=== PATIENT | male | born 1995 | race Caucasian/White ===

== ENCOUNTER 2023-08-08 16:09 | Outpatient (CLI) | payer OTHER, SELFPAY | END 2023-08-08 16:10 | disposition home or self-care (01) | PROVIDERS: Visit Provider Internal Medicine | DX: M79.643 Pain in unspecified hand (principal) | CPT/HCPCS: 86039; 86200; 86431 ==

== ENCOUNTER 2023-08-08 16:29 | Outpatient (CLI) | payer OTHER, SELFPAY ==
--- NOTE | 2023-08-08 16:30 | XR_ITS ---
Patient: ELIAZAR JUSTICE Facility:?[facility] Patient ID:?[id number] Site Patient ID:?[id number]. Site :?1995 Study:?XRay-Extremity Left HAND 3V-08/08/2023 5:20:27 PM Ordering Physician:?MARCOSITER Final Report: INDICATION: Pain. TECHNIQUE: Three views of the left hand. FINDINGS: No bone, joint, or soft tissue abnormality in the left hand. Normal exam. Dictated by Lasha Murrieta MD @ 08/09/2023 12:47:50 PM Signed by:?Lasha Murrieta MD @08/09/2023 12:47:50 PM (Electronic Signature)
--- NOTE | 2023-08-08 16:45 | XR_ITS ---
Patient: ELIAZAR JUSTICE Facility:?[facility] Patient ID:?[id number] Site Patient ID:?[id number]. Site :?1995 Study:?XRay-Extremity Right HAND 3V-08/08/2023 5:20:51 PM Ordering Physician:?MARCOSITER Final Report: INDICATION: Pain. TECHNIQUE: Three views of the right hand. FINDINGS: No bone, joint, or soft tissue abnormality in the right hand. Normal exam. Dictated by Lasha Murrieta MD @ 08/09/2023 12:49:08 PM Signed by:?Lasha Murrieta MD @08/09/2023 12:49:08 PM (Electronic Signature)
== END 2023-08-08 16:30 | disposition home or self-care (01) ==
LOC: RAD 16:29
PROVIDERS: Visit Provider Internal Medicine
DX: M79.641 Pain in right hand (principal); M79.642 Pain in left hand
CPT/HCPCS: 73130; 86039; 86200; 86431

== ENCOUNTER 2023-12-08 15:47 | Outpatient (CLI) | payer OTHER, SELFPAY | END 2023-12-08 15:48 | disposition home or self-care (01) | PROVIDERS: PCP Internal Medicine; Visit Provider Registered Nurse | DX: R30.0 Dysuria (principal); R21 Rash and other nonspecific skin eruption; Z11.3 Encounter for screening for infections with a predominantly sexual mode of transmission | CPT/HCPCS: 86592; 86694; 86695; 86696; 87491; 87591 ==

== ENCOUNTER 2023-12-29 15:23 | Outpatient (CLI) | payer OTHER, SELFPAY ==
--- OUTSIDE RECORDS SUMMARY | 2023-12-30 10:28 | XMS_ITS | Continuity of Care Document ---
Author Name [facility] Organization [facility] Care Team Providers Care Eyeglass Inspector Name Role Phone [facility] Unavailable Unavailable Problems Combined list of problems [...] Site Reaction Lot Number CVX Code Drug Electrifier Operator Status Comments Source COVID Vaccine Pfizer 2021 SADAPKIRUI Left [place] id [id number] PFIZER complet ed COVID Vaccine Pfizer 09/30/21 Given 0075C-G eneral [facility] COVID Vaccine Pfizer 2021 SHARONKSPANGL ER Right [place] id [id number] PFIZER complet ed COVID Vaccine Pfizer 08/28/21 Given 0075A-G eneral [facility] meningococcal conjugate vaccine 2021 SUSANTHOLLAND Right [place] id [id number] sanofi pasteur complet ed meningoco ccal conjugate vaccine 08/28/21 Given 0075A-G eneral [facility] poliovirus vaccine, inactivated 2021 ASHLEYRPALMER Left [place] id [id number] sanofi pasteur complet ed polioviru s vaccine, inactivat ed 08/28/21 Given 0075A-G eneral [facility] influenza virus vaccine, inactivated 2021 ASHLEYRPALMER Left [place] id [id number] Seqirus, [employer] complet ed influenza virus vaccine, inactivat ed 08/28/21 Given 0075A-G eneral [facility] hepatitis A-hepatitis B vaccine 2021 ASHLEYRPALMER Right [place] id [id number] GlaxoSmithKli ne complet ed hepatitis A-hepatit is B vaccine 08/28/21 Given 0075A-G eneral [facility] tetanus, diphtheria, acellular pertu is 2021 DANIEL Steele Left [place] id [id number] [employer] complet ed tetanus, diphtheri a, acellular pertussis 08/28/21 Given 0075A-G eneral [facility] adenovirus vaccine, live 2021 TIMOTHYJWEIGM AN [id number] [employer] [facility] complet ed adenoviru s vaccine, live 08/28/21 Given 0075A-G eneral Toño [facility] Results Combined list of recent chemistry, hematology [...] For example, cartridge failed integrity test, the thermoforming operator stopped a test that was in progress, or a power failure occurred. Currently the FluVID order may only be used to test SARS-CoV-2 at [facility] Chemistry G6PD 14.3 [...] and its performance characteris tics evaluated by [facility] Reference Chemistry Laboratory. It has not been [...] and its performance characteris tics evaluated by [facility] Reference [facility]. ? It has not [...] Performed At: 1 [facility] [address] [place] [address] [address] [place] [address] WAYNE GORDON PHD Ph:[phone] [facility] Infectiou s Disease [...] For example, cartridge failed integrity test, the thermoforming operator stopped a test that was in progress, or a power failure occurred. Currently the FluVID order may only be used to test SARS-CoV-2 at [facility] Urinalysi s UA [...] of Defense and Veterans Affairs (VA).VA Functional [place] Measurement (FIM) Scale: 1 = Total Assistance (Subject = 0% +), 2 = Maximal Assistance (Subject = 25% +), 3 = Moderate Assistance (Subject = 50% +), 4 = Minimal Assistance (Subject = 75% +), 5 = Supervision, 6 = Modified [place] (Device), 7 = Complete [place] (Timely, Safely). Assessment Date/Time Source Assessment Type Assessment Skill Assessment Score Assessment Details No data available for this section
== END 2023-12-29 15:24 | disposition home or self-care (01) ==
LOC: NFLDREF 12-30 10:25
PROVIDERS: PCP Internal Medicine; Referring Provider Internal Medicine; Visit Provider Registered Nurse
DX: R35.0 Frequency of micturition (principal); Z11.3 Encounter for screening for infections with a predominantly sexual mode of transmission
CPT/HCPCS: 87086; 87491; 87591

== ENCOUNTER 2023-12-30 08:29 | Outpatient (CLI) | payer OTHER, SELFPAY ==
--- OUTSIDE RECORDS SUMMARY | 2023-12-30 08:32 | XMS_ITS | Continuity of Care Document ---
Author Name [facility] Organization [facility] Care Team Providers Care Fryer Operator Name Role Phone [facility] Unavailable Unavailable Problems Combined list of problems from Department of Defense and Veterans Affairs facilities. It does not include entries that were removed or entered in error. Problem Status Onset Date Problem Type Date of Resolution Comments Source Counseled by nurse Active Condition Ambulatory Pharmacy Patient examined Active Condition Ambulatory Pharmacy Immunizations Combined list of available immunizations from the Department of Defense and Veterans Affairs facilities. Immunization Series Date Given Administered By Site Reaction Lot Number CVX Code Drug Software Support Technician Status Comments Source COVID Vaccine Pfizer 2021 SADAPKIRUI Left [place] id [id number] PFIZER complet ed COVID Vaccine Pfizer 09/30/21 Given 0075C-G [facility]eral [facility] COVID Vaccine Pfizer 2021 SHARONKSPANGL ER Right [place] id [id number] PFIZER complet ed COVID Vaccine Pfizer 08/28/21 Given 0075A-G eneral [facility] meningococcal conjugate vaccine 2021 SUSANTHOLLAND Right [place] id [id number] sanofi pasteur complet ed meningoco ccal conjugate vaccine 08/28/21 Given 0075A-G eneral [facility] poliovirus vaccine, inactivated 2021 ASHLEYRPALMER Left [place] id [id number] sanofi pasteur complet ed polioviru s vaccine, inactivat ed 08/28/21 Given 0075A-G eneral [facility] influenza virus vaccine, inactivated 2021 ASHLEYRPALMER Left [place] id [id number] Seqirus, [employer] complet ed influenza virus vaccine, inactivat ed 08/28/21 Given 0075A-G eneral [facility] hepatitis A-hepatitis B vaccine 2021 ASHLEYRPALMER Right [place] id [id number] GlaxoSmithKli ne complet ed hepatitis A-hepatit is B vaccine 08/28/21 Given 0075A-G eneral [facility] tetanus, diphtheria, acellular pertu is 2021 DANIEL Steele Left [place] id [id number] [employer] [address] complet ed tetanus, diphtheri a, acellular pertussis 08/28/21 Given 0075A-G eneral [facility] adenovirus vaccine, live 2021 TIMOTHYJWEIGM AN [id number] [employer] [facility] complet ed adenoviru s vaccine, live 08/28/21 Given 0075A-G eneral Toño [facility] Results Combined list of recent chemistry, hematology and other laboratory results from Department of Defense and Veterans Affairs, ranging from 15 months to all on record, depending upon the facility. Order Name Results Value Reference Range Date Interpretation Specimen Comments Source Infectiou s Disease Reason for Test? Screenin g (09/02/21 11:30 AM) 09/02 N [facility] Infectiou s Disease SARS-CoV- 2 PCR Negative 8 (09/02/21 11:30 AM) 09/02 N Interpretiv e Data: POSITIVE-Th e 2019 novel Coronavirus (SARS-COV-2 ) target nucleic acids are detected. PRESUMTIVE POSITIVE-Th e 2019 novel Coronavirus (SARS-COV-2 ) target nucleic acids MAY be present. Sample should be retested. For samples with a repeated PRESUMTIVE POSITIVE result, additional confirmator y testing may be conducted, if it is necessary to differentia te between SARS-COV-2 and SARS-COV-1 or other Sarbecoviru s currently unknown to infect humans, for epidemiolog ical purposes or clinical management. NEGATIVE- The 2019 novel Coronavirus (SARS-COV-2 ) target nucleic acids are not detected. INVALID- Result indicates that the control SPC failed. The Sample was not properly processed, PCR is inhibited, or the sample was not properly collected. ERROR- Result could be due to, but not limited to, Probe Check Control failure, system component failure, or the maximun pressure limits were exceeded. NO RESULT- Indicates that insufficien t data were collected. For example, cartridge failed integrity test, the chip machine operator stopped a test that was in progress, or a power failure occurred. Currently the FluVID order may only be used to test SARS-CoV-2 at [facility] Chemistry G6PD 14.3 unit/gHb 08/26 N Interpretiv e Data: All persons below our lower limit of 7 are considered Deficient .G6PD reported value is a calculation based on G6PD and hemoglobin values. Values greater than the upper limit of our reference range are considered Normal in accordance with guidance from the [place] Textbook on Clinical Chemistry, which states that values greater than the upper limit of the reference range are encountered in any condition associated with younger than normal RBC's (as in hemolytic anemias not due to G6PD deficiency) , but are of no clinical significanc e. Certain drugs and other substances are known to influence circulating levels of G6PD. Reticulocyt es havehigher G6PD levels than mature erythrocyte s, so samples should not be collected after a severe hemolytic crisis. Copper completely inhibits G6PD at a concentrati on of 100 umol/L, and sulfate ions (0.005 mol/L) decrease observed levels of G6PD activity. This test was developed and its performance characteris tics evaluated by [facility] Reference Chemistry Laboratory. It has not been cleared or approved by the U.S. Food Drug Administrat ion (FDA). FDA does not require this test to go through premarket FDA review.The test isused for clinical purposes and should not be regarded as investigati onal or for research. This laboratory is certified under the Clinical Laboratory Improvement Amendments of 1988 (CLIA) as qualified to perform high complexity clinical laboratory testing. [facility] Chemistry Sickle Cell Screen Negative 4 (08/26/21 8:51 AM) 08/26 N Interpretiv e Data: Expected Normal Range is Negative. This test was developed and its performance characteris tics evaluated by [facility] Reference Chemistry Laboratory. ? It has not been cleared or approved by the U.S. Food Drug Administrat ion (FDA).&#160 ; FDA does not require this test to go through premarket FDA review.? The test is used for clinical purposes and should not be regarded as investigati onal or for research. This laboratory is certified under the Clinical Laboratory Improvement Amendments of 1988 (CLIA) as qualified to perform high complexity clinical laboratory testing. [facility] Miscellan eous Sendouts DNA Sample Collected ? Y 08/26 [facility] Immunolog y/Serolog y VZV IgG Scrn Positive 1 *ABN* (08/26/21 8:51 AM) 08/26 A Interpretiv e Data: POSITIVE (REACTIVE) for anti-Varice lla IgG; presumed immune NEGATIVE (NON REACTIVE) for anti-Varice lla IgG; presumed non-immune [facility] Immunolog y/Serolog y Rubeola IgG Antibody Positive *ABN* (08/26/21 8:51 AM) 08/26 A [facility] Immunolog y/Serolog y Rubella IgG Antibody Positive 7 *ABN* (08/26/21 8:51 AM) 08/26 A Interpretiv e Data: POSITIVE (REACTIVE) for anti-Rubell a IgG; presumed immune NEGATIVE (NON REACTIVE) for anti- Rubella IgG; presumed non-immune [facility] Blood Bank ABO/Rh Type AB NEG 08/26 [facility] Immunolog y/Serolog y Hep A Ab Non-Reac tive 3 (08/26/21 8:51 AM) 08/26 N Interpretiv e Data: NONREACTIVE - Indicates a sample nonreactive for Anti-HAV antibodies. The result does not exclude the possibility of infection with hepatitis A virus. Levels of Anti-HAV antibodies may be below the Cutoff in early infection. REACTIVE- Indicates the presence of anti-HAV antibodies. A reactive result does not rule out other hepatitis infections. [facility] Immunolog y/Serolog y Hep B Surface Ab Non-Reac tive 2 (08/26/21 8:51 AM) 08/26 N Interpretiv e Data: Nonreactive : Patient is considered to be not immune to infection with HBV. Reactive: Patient is considered reactive, and the patient is considered to be immune to infection with HBV. [facility] Infectiou s Disease Source of Test.LC Gen Force Test (08/26/21 8:51 AM) 08/26 N [facility] Infectiou s Disease HIV-1/2 AG/AB 4G CDD LC NEGATIVE 08/26 Result Comment: Performed At: 1 [facility] [address] [place] [address] [address] [place] [address] WAYNE GORDON PHD Ph:[phone] [facility] Infectiou s Disease Reason for Test? Screenin g (08/26/21 1:20 AM) 08/26 N [facility] Infectiou s Disease SARS-CoV- 2 PCR Negative 9 (08/26/21 1:20 AM) 08/26 N Interpretiv e Data: POSITIVE-Th e 2019 novel Coronavirus (SARS-COV-2 ) target nucleic acids are detected. PRESUMTIVE POSITIVE-Th e 2019 novel Coronavirus (SARS-COV-2 ) target nucleic acids MAY be present. Sample should be retested. For samples with a repeated PRESUMTIVE POSITIVE result, additional confirmator y testing may be conducted, if it is necessary to differentia te between SARS-COV-2 and SARS-COV-1 or other Sarbecoviru s currently unknown to infect humans, for epidemiolog ical purposes or clinical management. NEGATIVE- The 2019 novel Coronavirus (SARS-COV-2 ) target nucleic acids are not detected. INVALID- Result indicates that the control SPC failed. The Sample was not properly processed, PCR is inhibited, or the sample was not properly collected. ERROR- Result could be due to, but not limited to, Probe Check Control failure, system component failure, or the maximun pressure limits were exceeded. NO RESULT- Indicates that insufficien t data were collected. For example, cartridge failed integrity test, the chip machine operator stopped a test that was in progress, or a power failure occurred. Currently the FluVID order may only be used to test SARS-CoV-2 at [facility] Pharmacy Urinalysi s UA Glucose Negative (07/14/21 10:50 AM) 07/14 N [facility] Urinalysi s UA Protein Negative (07/14/21 10:50 AM) 07/14 N [facility] Vital Signs Combined list of inpatient and outpatient Vital Signs from Department of Defense and Veterans Affairs, ranging from 12 months to all on record, depending upon the facility. Vital Sign Value Date Comments Source Procedures Combined list of: 1) Procedures from Department of Veterans Affairs facilities going back up to thelast 18 months, not all VA non-surgical procedures are included; 2) All procedures from the Department of Defense facilities. Procedure Procedure Type Code Date Perfomer Comments Sourc e No data available for this section Ambulatory P harmacy Assessment and Plan Combined list of future care activities from Department of Defense and Veterans Affairs facilities (e.g., assessment and plan notes, appointments, orders, and referrals). Additional future care activities may be listed in the Plan of Care section. Result Assessment and Plan Date Source Assessment and Plan Extracted from:Title : Education Note Author: TASHA MONTES DE OCA JR Date: 07/14/21 Patient Education Materials Follows: 12/30/2023 Ambulatory Pharmacy Functional Status Combined list of recent functional and cognitive assessments recorded at Department of Defense and Veterans Affairs (VA).VA Functional [place] Measurement (FIM) Scale: 1 = Total Assistance (Subject = 0% +), 2 = Maximal Assistance (Subject = 25% +), 3 = Moderate Assistance (Subject = 50% +), 4 = Minimal Assistance (Subject = 75% +), 5 = Supervision, 6 = Modified [place] (Device), 7 = Complete [place] (Timely, Safely). Assessment Date/Time Source Assessment Type Assessment Skill Assessment Score Assessment Details No data available for this section
--- NOTE | 2023-12-30 09:15 | CRLHL7_ITS ---
For Patients: As a result of the Century Cures Act, medical imaging exams and procedure reports are released immediately into your electronic medical record. You may view this report before your referring provider. If you have questions, please contact your health care provider. Indication: Right hip pain. Procedure : Informed consent was obtained. The site was marked. Time-out was performed. The skin of the right hip was cleansed with ChloraPrep. A sterile drape was placed. 8 cc of 1 percent lidocaine was administered for superficial anesthesia. Subsequently a 22 gauge spinal needle was introduced into the right hip joint under intermittent fluoroscopic guidance. Injection of 2 cc nonionic Omnipaque 240 contrast confirmed intra-articular location. Subsequently 11 cc of dilute gadolinium were injected. The needle was removed and hemostasis achieved with direct pressure. A dressing was placed. The patient tolerated the procedure well without immediate complication and was immediately sent to MRI for imaging. Total fluoroscopy time 39 seconds. Impression: Successful fluoroscopically guided right hip arthrogram for MRI. Dictated by Bruce Figueredo MD @ 12/30/2023 11:49:24 AM (Electronically Signed)
--- NOTE | 2023-12-30 10:15 | MR_ITS ---
[address] [address] Phone:?[phone] Fax:?[phone] Referring Physician Information: Connie Navarro [address] [facility] [address] Phone:?[phone] Fax:?[phone] Patient:Gabbie Lopez D.O.B:?1995 Sex:?Male Phone:?[phone] [facility] MRN:?[id number] Exam Date:?12/30/2023 EXAM: MR ARTHROGRAM EXAMINATION OF THE RIGHT HIP CLINICAL INFORMATION: Right hip pain. No specific injury. No history of surgery to this area. Evaluate labral tear. TECHNICAL INFORMATION: The study was performed following the intraarticular injection of a dilute gadolinium solution. Axial, coronal and sagittal dual-echo imaging of the hip was performed in addition to coronal STIR and coronal T1-weighted images of both hips and the pelvis. T1 sagittal and coronal fat sat were also performed. There are no prior studies available for comparison. INTERPRETATION: Hip joint: The hip joint is distended with contrast material status post arthrogram injection. No discrete loose body is seen. No subchondral edema signal or cystic change. No discrete lesion identified to indicate AVN. No evidence of marrow edema pattern to indicate fracture or stress reaction of the femoral neck. There is no evidence for a right hip joint chondral defect. No other appreciable changes of hip joint chondromalacia identified. There is no evidence for a tear involving the superior aspect of the labrum. Series 8 images 13 through 16 of a straight a 1.2 cm segment of linear tear which involves the anterosuperior aspect of the labrum. No evidence for a paralabral cyst. There is no appreciable decreased offset involving the femoral head/neck junction. No evidence for acetabular retroversion. The gluteus tendon insertions onto the greater trochanter are intact without tear or significant tendinopathy. No evidence of fluid signal abnormality to indicate trochanteric bursitis. Intact appearance of the iliopsoas muscle and tendon insertions. Abnormal fluid and edema signal in keeping with a moderate appearance of iliopsoas bursitis. Bones and joints: No evidence for an occult fracture/stress reaction involving the sacrum. There are no appreciable changes of SI joint arthrosis. No evidence for a fracture. No abnormal marrow edema pattern to indicate occult stress reaction or stress fracture. Musculotendinous structures: No evidence of acute musculotendinous injury. Specifically, no evidence of acute muscle tear, hematoma or other edema pattern. Intrapelvic contents: No free fluid seen within the pelvis. No discrete intrapelvic mass is identified. Neurovascular structures: No discrete cyst, mass or other compression upon the portions visualized of sciatic or femoral nerves. CONCLUSION: 1. Approximate 1.2 cm segment of linear tear involving the anterosuperior aspect of the labrum, without evidence for a paralabral cyst. 2. The articular cartilage of the hip joint is preserved. 3. No convincing MRI evidence for morphologic predisposition to femoroacetabular impingement. 4. There is a moderate appearance of iliopsoas bursitis. 5. No evidence for an occult fracture/stress reaction. No evidence for AVN. KES Electronically signed on 12/30/2023 2:35:00 PM by Johnathan Jacobs M.D.
== END 2023-12-30 08:30 | disposition home or self-care (01) ==
LOC: RAD 08:30
PROVIDERS: PCP Internal Medicine; Visit Provider Physician Assistant Surgical
DX: M25.551 Pain in right hip (principal); S73.192A Other sprain of left hip, initial encounter; M70.72 Other bursitis of hip, left hip; S79.919A Unspecified injury of unspecified hip, initial encounter; S76.211A Strain of adductor muscle, fascia and tendon of right thigh, initial encounter
CPT/HCPCS: 27093; 73525; 73722; 77002; A9575; Q9966

== ENCOUNTER 2024-01-11 18:24 | Outpatient (REF) | payer OTHER, SELFPAY ==
--- OUTSIDE RECORDS SUMMARY | 2024-01-11 18:28 | XMS_ITS | Continuity of Care Document ---
Author Name [facility] Organization [facility] Care Team Providers Care Abrasive Coating Machine Operator Name Role Phone [facility] Unavailable Unavailable Problems Combined list of problems [...] Site Reaction Lot Number CVX Code Drug Mobile Designer Status Comments Source COVID Vaccine Pfizer 2021 SADAPKIRUI Left [place] id [id number] PFIZER complet ed COVID Vaccine Pfizer 09/30/21 Given [facility] COVID Vaccine Pfizer 2021 SHARONKSPANGL ER Right [place] id [id number] PFIZER complet ed COVID Vaccine Pfizer 08/28/21 Given 0075A[facility] meningococcal conjugate vaccine 2021 SUSANTHOLLAND Right [place] id [id number] sanofi pasteur complet ed meningoco ccal conjugate vaccine 08/28/21 Given 0075A[facility] poliovirus vaccine, inactivated 2021 ASHLEYRPALMER Left [place] id [id number] sanofi pasteur complet ed polioviru s vaccine, inactivat ed 08/28/21 Given [facility]75A[facility] influenza virus vaccine, inactivated 2021 ASHLEYRPALMER Left [place] id [id number] [employer], A [employer] complet ed influenza virus vaccine, inactivat ed 08/28/21 Given 0075A-[facility] hepatitis A-hepatitis B vaccine 2021 ASHLEYRPALMER Right [place] id [id number] GlaxoSmithK[employer] ne complet ed hepatitis A-hepatit is B vaccine 08/28/21 Given [facility] tetanus, diphtheria, acellular pertu is 2021 DANIEL Steele Left [place] id [id number] [employer] [place] complet ed tetanus, diphtheri a, acellular pertussis 08/28/21 Given 0075A-G [facility] adenovirus vaccine, live 2021 TIMOTHYJWEIGM AN [id number] [employer] [facility] complet ed adenoviru s vaccine, live 08/28/21 Given 0075A-G eneral [facility]ño [facility] Results Combined list of recent chemistry, [...] For example, cartridge failed integrity test, the casting machine set up operator stopped a test that was in progress, or a power failure occurred. Currently the FluVID order may only be used to test SARS-CoV-[address] [facility] Chemistry G6PD 14.3 [...] and its performance characteris tics evaluated by [facility] Reference Chemistry Laboratory. It has [...] and its performance characteris tics evaluated by [facility] Reference Chemistry Laboratory. ? It [...] At: 1 [facility] [address] [place] [address] [address] [place] [address] WAYNE GORDON PHD Ph:[phone] [facility] Infectiou s Disease [...] For example, cartridge failed integrity test, the casting machine set up operator stopped a test that was in progress, or a power failure occurred. Currently the FluVID order may only be used to test SARS-CoV-[address] [facility] Pharmacy Urinalysi s UA [...] available for this section Ambulatory P harmacy Social History Combined list of available smoking, tobacco, and other social history from [facility] facilities. Social History Type Response Date Comment Sourc e Male 07/10/2021 Ambulatory Pha rmacy Sexual Orientation Ambula tory Pharmacy Gender identity [facility] Assessment and Plan Combined list of future [...] JR Date: 07/14/21 Patient Education Materials Follows: 01/11/2024 Ambulatory Pharmacy Functional Status Combined list of recent functional and cognitive assessments recorded at [facility] Functional [place] Measurement (FIM) Scale: 1 = Total Assistance (Subject = 0% +), 2 = Maximal Assistance (Subject = 25% +), 3 = Moderate Assistance (Subject = 50% +), 4 = Minimal Assistance (Subject = 75% +), 5 = Supervision, 6 = Modified [place] (Device), 7 = Complete [place] (Timely, Safely). Assessment Date/Time Source Assessment Type Assessment Skill Assessment Score Assessment Details No data available for this section
[2024-01-11 19:09] LABS: Basophils Absolute Auto 0.03 K/uL (0.00-0.30); Basophils Percent Auto 0.3 % (0.0-3.0); Eosinophils Absolute Auto 0.52 K/uL (0.00-0.50); Eosinophils Percent Auto 5.5 % (0.0-7.0); Hemoglobin* 11.6 gm/dL (13.5-17.5); Immature Granulocytes Abs Auto 0.02 K/uL (0.00-0.30); Immature Granulocytes Pct Auto 0.2 %; Lymphocytes Percent Auto 14.2 % (20-44); Mean Corpuscular HGB Conc 31 gm/dL (32-36); Mean Corpuscular Hemoglobin 27 pg (26-34); Mean Corpuscular Volume 87 fL (80-100); Monocytes Percent Auto 11.2 % (0.0-11.0); Neutrophils Absolute Auto 6.51 K/uL (1.7-7.0); Neutrophils Percent Auto 68.6 % (42.0-72.0); Platelet Count* 395 K/uL (140-440); RDW Coefficient of Variation % 13.3 % (11.5-15.5); Red Blood Count 4.36 m/uL (4.30-5.90); White Blood Count* 9.49 K/uL (4.50-11.00)
[2024-01-11 19:15] LABS: Slide Review Reflex No
[2024-01-11 19:51] LABS: Erythrocyte SedimentationRate* 44 mm/hr (2-15)
[2024-01-11 19:54] LABS: Albumin* 4.5 g/dL (3.3-5.0)
[2024-01-11 19:57] LABS: Alanine Aminotransferase* 21 U/L (4-50); Aspartate Amino Transferase* 32 U/L (12-35); Estimated Glomerular Filt Rate 106 ml/min
[2024-01-11 20:00] LABS: C Reactive Protein* 3.2 mg/dL (0.5-1.0)
== END 2024-01-11 18:25 | disposition home or self-care (01) ==
LOC: NPINS 18:24
PROVIDERS: PCP Internal Medicine
DX: M06.00 Rheumatoid arthritis without rheumatoid factor, unspecified site (principal); Z79.899 Other long term (current) drug therapy
CPT/HCPCS: 82040; 82565; 84450; 84460; 85025; 85651; 86140

== ENCOUNTER 2024-02-07 16:15 | Outpatient (RCR) | payer OTHER, SELFPAY ==
--- NOTE | 2024-02-07 17:04 | PT.OPDN ---
PT [facility] Daily Note PT [facility] Daily Note Start: 01/03/24 15:07 Freq: Status: Active Protocol: Document 02/07/24 16:16 CJT (Rec: 02/07/24 17:03 CJT [id number]) E-signed By Kieran Hills PT PT OP Daily Progress Note Visit Information Note Type Daily Note Visit Number 6 Insurance Authorized Visits 18 Physician Authorized Visits eval and treat Insurance Information Recert Due Date 04/02/24 Insurance Name Other; See Comments Insurance Information/Comments [facility] Diagnosis R hip pain Treating Diagnosis R hip pain Imaging Report Information 1. Approximate 1.2 cm segment of linear tear involving the anterosuperior aspect of the labrum, without evidence for a paralabral cyst. 2. The articular cartilage of the hip joint is preserved. 3. No convincing MRI evidence for morphologic predisposition to femoroacetabular impingement. 4. There is a moderate appearance of iliopsoas bursitis. 5. No evidence for an occult fracture/stress reaction. No evidence for AVN Referring Pablo Shepard MD Subjective Preferred Name Inocencio Subjective Hip has been feeling okay as pt has not done anything to aggravate. Hands have been hurting much more the past few days. Pt reports 15-20% improvement in symptoms. Pain Comments 10/23 Date of Last Physician Visit 12/20/23 Date of Next Physician Visit 01/10/24 Home Exercise Home Exercise Comments Access Code: [email or web address] URL: [email or web address] Date: 01/03/2024 Prepared by: Kieran Hills Exercises - Sidelying Hip Abduction - 1 x daily - 7 x weekly - 2-3 sets - 15 reps - Supine Active Straight Leg Raise - 1 x daily - 7 x weekly - 2-3 sets - 15 reps - Beginner Front Arm Support - 1 x daily - 7 x weekly - 2-3 sets - 15 reps - Sidelying Hip Adduction - 1 x daily - 7 x weekly - 2-3 sets - 15 reps Objective Other/Pertinent Objective R Hip Strength Flexion - 4+/5 MMT Abduction - 5/5 MMT Adduction - 5/5 MMT IR - 5/5 MMT ER - 5/5 MMT Extension - 5/5 MMT Patient Instructed in Risks/Benefits Yes Therapeutic Exercise Therapeutic Exercise Minutes (minutes) 18 Therapeutic Exercise: To Restore Bike - 5 minutes Functional Status TG Squats x 25 Hip flexion isometrics in hooklying, legs elevated 2 x 10, 5 hold Hip abduction in S/L Manual Therapy Techniques Manual Therapy Minutes (minutes) 10 Manual Therapy Techniques Prone PA mobilizations to R hip, grade III-IV, performed to facilitate motion and reduce tissue tension of anterior hip. STM/palpation of R anterior hip to facilitate bloodflow to promote healing and reduce tissue tension to improve extensibility. Other Interventions Provided Other Modalities Provided Estim - high frequency x 15 minutes; electrodes placed at R inguinal ligament and muscle belly of rectus femoris; intensity set to pt preference Other Modalities Untimed Minutes 15 Treatment Minutes Untimed Code Treatment Minutes 15 Timed Code Treatment Minutes 28 Total Treatment Time 43 Billing Units Manual Therapy Units 1 Therapeutic Exercise Units 1 Electrical Stimulation Units 1 Assessment/Impression Assessment/Impression Inocencio has completed 5 weeks of physical therapy with minimal relief in symptoms. We have tried exercise, manual therapy, ultrasound, ice massage, and e-stim all with minimal and non-lasting relief of symptoms. At this time I think it is prudent that he explores other options for treatment. I do wonder if a cortisone injection to his R iliopsoas bursa may be beneficial at this time. I have asked Inocencio to contact our orthopedic department to discuss next steps for symptoms management and he gives verbal understanding. Inocencio and I have agreed to discontinue therapy at this time. We will hold his chart 30 days. If pt does not return during that time, this note will serve as his discharge note. Plan of Care Physical Therapy Goals STG - To be completed in 2-3 weeks: 1. Pt will report reduction in R hip pain by factor of 2 so that he may go for walks for light exercise with manageable pain. 2. Pt will demo ability to perform 20 SLR reps without extension lag as indication of improved hip flexor strength. 2. Pt will demo 5/5 MMT for all LE motions B to provide greater support to B hips with functional activities. LTG - To be completed in 6 weeks: 1. Pt to be I with HEP so that he may I manage progression of symptoms. 2. Pt will demo negative FADIR , resisted SLR test as indication of reduced irritation of R hip labrum. 3. Pt will report ability to jog 1 mile without reproduction of hip pain so that he may return to jogging for moderate level exercise. Daily Plan of Care Change POC; See Comments Daily Plan of Care Comments Hold chart. Discharge Note Discharge Summary Inocencio has completed 5 weeks of physical therapy with minimal relief in symptoms. We have tried exercise, manual therapy, ultrasound, ice massage, and e-stim all with minimal and non-lasting relief of symptoms. At this time I think it is prudent that he explores other options for treatment. I do wonder if a cortisone injection to his R iliopsoas bursa may be beneficial at this time. I have asked Inocencio to contact our orthopedic department to discuss next steps for symptoms management and he gives verbal understanding. Inocencio and I have agreed to discontinue therapy at this time. We will hold his chart 30 days. If pt does not return during that time, this note will serve as his discharge note. Date of First Visit for Therapy 01/03/24 Date of Last Visit for Therapy 02/07/24 Interventions Provided During Treatment Electrical Stimulation,Ice/ Cold/Vasopneumatic,Joint Mobilization,Manual Therapy, Therapeutic Exercise, Ultrasound Recommendations/Reason for Discharge Returned to
== END 2024-04-05 09:40 | disposition home or self-care (01) ==
PROVIDERS: PCP Internal Medicine; Visit Provider Physician Assistant Surgical
DX: S79.919A Unspecified injury of unspecified hip, initial encounter (principal); M25.551 Pain in right hip; Z51.89 Encounter for other specified aftercare
CPT/HCPCS: 97012; 97032; 97035; 97110; 97140; 97161

== ENCOUNTER 2024-03-14 15:42 | Outpatient (CLI) | payer OTHER, SELFPAY ==
--- OUTSIDE RECORDS SUMMARY | 2024-03-14 15:46 | XMS_ITS | Continuity of Care Document ---
Author Name [facility] Organization [facility] Care Team Providers Care Breaker Hand Name Role Phone [facility] Unavailable Unavailable Problems Combined list of problems [...] Site Reaction Lot Number CVX Code Drug Media Sales Representative Status Comments Source COVID Vaccine Pfizer 2021 JOSELYNI Shoul sinai, left (delt oid) [id number] PFIZER complet ed COVID Vaccine Pfizer 09/30/21 Given [facility]G [facility]eral [facility] COVID Vaccine Pfizer 2021 RADHA ER Shoul sinai, right (delt oid) [id number] PFIZER complet ed COVID Vaccine Pfizer 08/28/21 Given 0075A-G eneral [facility] meningococcal conjugate vaccine 2021 SUSANTHOLLAND Shoul sinai, right (delt oid) [id number] sanofi pasteur complet ed meningoco ccal conjugate vaccine 08/28/21 Given 0075A-G eneral [facility] poliovirus vaccine, inactivated 2021 JIGAR Cabreraul sinai, left (delt oid) [id number] sanofi pasteur complet ed polioviru s vaccine, inactivat ed 08/28/21 Given 0075A-G en[facility] influenza virus vaccine, inactivated 2021 AARONALMER Shoul sinai, left (delt oid) [id number] [employer] complet ed influenza virus vaccine, inactivat ed 08/28/21 Given 0075A-G eneral [facility] hepatitis A-hepatitis B vaccine 2021 KATHERINEMER Deborahul sinai, right (delt oid) [id number] [employer] [place] complet ed hepatitis A-hepatit is B vaccine 08/28/21 Given 0075A-G eneral [facility] tetanus, diphtheria, acellular pertu is 2021 DANIEL Steele Evens sinai, left (delt oid) [id number] [facility] tetanus, diphtheri a, acellular pertussis 08/28/21 Given 0075A-G eneral [facility] adenovirus vaccine, live 2021 TIMOTHYJWEIGM AN [id number] [employer] [facility] complet ed adenoviru s vaccine, live 08/28/21 Given 0075A-G eneral [facility] Results Combined list of recent chemistry, hematology [...] For example, cartridge failed integrity test, the boring and filling machine operator stopped a test that was in progress, or a power failure occurred. Currently the FluVID order may only be used to test SARS-CoV-2 at [facility] Pharmacy Chemistry G6PD 14.3 [...] and its performance characteris tics evaluated by [facility] Reference Chemistry Laboratory. It has not been [...] and its performance characteris tics evaluated by [facility] Reference Chemistry Laboratory. ? It has not [...] Performed At: 1 [facility] [address] [place] [address] [address] [place] [address] WAYNE GORDON PHD Ph:[phone] [facility] Pharmacy Infectiou s Disease [...] For example, cartridge failed integrity test, the boring and filling machine operator stopped a test that was in progress, or a power failure occurred. Currently the FluVID order may only be used to test SARS-CoV-2 at [facility] Ambulator y Pharmacy Urinalysi s UA [...] facility. Vital Sign Value Date Comments Source Vital Signs Comments 07/14/2021 13:33:00 Ambulatory Pharmacy Systolic Blood Pressure 137mm[Hg] 07/14/2021 13:22:00 Ambulatory Pharmacy Diastolic Blood Pressure 80mm[Hg] 07/14/2021 13:22:00 Ambulatory Pharmacy Peripheral Pulse Rate 85bpm 07/14/2021 13:22:00 Ambulatory Pharmacy Procedures Combined list of: 1) Procedures from [...] and other social history from [facility] facilities. Social History Type Response Date Comment Sourc e Male 07/10/2021 Ambulatory Pha rmacy Sexual Orientation Ambula tory Pharmacy Gender identity [facility] Assessment and Plan Combined list of future care activities from [facility] and [facility] facilities (e.g., assessment and plan notes, appointments, orders, and referrals). Additional future care activities may be listed in the Plan of Care section. Result Assessment and Plan Date Source Assessment and Plan Extracted from:Title : Education Note Author: TASHA MONTES DE OCA JR Date: 07/14/21 Patient Education Materials Follows: 03/14/2024 Ambulatory Pharmacy Functional Status Combined list of recent functional and cognitive assessments recorded at [facility] Functional [place] Measurement (FIM) Scale: 1 = Total Assistance (Subject = 0% +), 2 = Maximal Assistance (Subject = 25% +), 3 = Moderate Assistance (Subject = 50% +), 4 = Minimal Assistance (Subject = 75% +), 5 = Supervision, 6 = Modified [place] (Device), 7 = Complete [place] (Timely, Safely). Assessment Date/Time Source Assessment Type Assessment Skill Assessment Score Assessment Details No data available for this section
== END 2024-03-14 15:43 | disposition home or self-care (01) ==
PROVIDERS: PCP Internal Medicine; Visit Provider Registered Nurse
DX: R21 Rash and other nonspecific skin eruption (principal); L30.1 Dyshidrosis [pompholyx]
CPT/HCPCS: 86592; 86703

== ENCOUNTER 2024-09-17 15:58 | Outpatient (CLI) | payer OTHER, SELFPAY ==
--- NOTE | 2024-09-17 16:00 | CRLHL7_ITS ---
For Patients: As a result of the Century Cures Act, medical imaging exams and procedure reports are released immediately into your electronic medical record. You may view this report before your referring provider. If you have questions, please contact your health care provider. INDICATION: Chronic cough. TECHNIQUE: CT chest without contrast. COMPARISON: None. FINDINGS: Lungs and pleura: Moderate subpleural reticulation and mild ground-glass opacity with a posterior basilar predominance, with some involvement of the upper lobes. Moderate to severe associated traction bronchiectasis at the lung bases. No definite honeycomb cyst formation. No suspicious pulmonary nodular consolidation. Heart and vasculature: Heart size is normal. Thoracic aorta and pulmonary artery are normal in caliber. Lymph nodes/mediastinum: Prominent and borderline enlarged mediastinal and hilar lymph nodes measuring up to approximately 13 millimeter short axis (for example a subcarinal node on series 3, image 52). Chest wall: No masses. Upper abdomen: No significant findings. Bones: Unremarkable for age. IMPRESSION: 1. Findings of moderate chronic interstitial lung disease. 2. Prominent borderline enlarged mediastinal and hilar lymph nodes. Favor reactive adenopathy. Recommend six-month follow-up CT to establish stability. Please note that all CT scans at this facility use dose modulation, iterative reconstruction, and/or weight-based dosing when appropriate to reduce radiation dose to as low as reasonably achievable. Dictated by Babatunde Albarado MD @ 09/19/2024 9:44:16 AM (Electronically Signed)
== END 2024-09-17 15:59 | disposition home or self-care (01) ==
PROVIDERS: PCP Registered Nurse; Visit Provider Registered Nurse
DX: R05.3 Chronic cough (principal); J98.4 Other disorders of lung; R59.0 Localized enlarged lymph nodes
CPT/HCPCS: 71250

== ENCOUNTER 2024-10-29 17:30 | Outpatient (CLI) | payer OTHER, SELFPAY | END 2024-10-29 17:31 | disposition home or self-care (01) | LOC: NFLDREF 17:42 | PROVIDERS: PCP Registered Nurse; Visit Provider Registered Nurse | DX: M06.9 Rheumatoid arthritis, unspecified (principal) | CPT/HCPCS: 80053 ==

== ENCOUNTER 2025-01-21 15:22 | Outpatient (CLI) | payer OTHER, SELFPAY | END 2025-01-21 15:23 | disposition home or self-care (01) | LOC: FRMREF 15:33 | PROVIDERS: PCP Family Medicine; Visit Provider Family Medicine | DX: M06.9 Rheumatoid arthritis, unspecified (principal); M34.9 Systemic sclerosis, unspecified; Z79.899 Other long term (current) drug therapy; B07.9 Viral wart, unspecified; D84.821 Immunodeficiency due to drugs; J84.9 Interstitial pulmonary disease, unspecified | CPT/HCPCS: 80053 ==

== ENCOUNTER 2025-03-11 14:50 | Outpatient (CLI) | payer OTHER, SELFPAY | END 2025-03-11 14:51 | disposition home or self-care (01) | PROVIDERS: PCP Family Medicine; Visit Provider Family Medicine | DX: M06.9 Rheumatoid arthritis, unspecified (principal); M34.9 Systemic sclerosis, unspecified | CPT/HCPCS: 93306 ==

== ENCOUNTER 2025-03-14 10:56 | Outpatient (CLI) | payer OTHER, SELFPAY ==
--- NOTE | 2025-03-14 12:45 | P.ANES_ITS ---
Anesthesia Charges Start Date/Time Anesthesia Start Date: 03/14/25 Anesthesia Start Time: 12:21 Stop Date/Time Anesthesia Stop Date: 03/14/25 Anesthesia Stop Time: 13:02 Coding CPT Codes CPT Codes: ANES LWR INTST NDSC NOS - [id number] ([id number]) QK - EMBROIDERY MACHINE OPERATOR 2-4 CNCRNT ANES PROC, QX - BARREL ROLLER SVC W/ MED DIRECTION, P3 - PATIENT W/SEVERE SYS DISEASE
--- NOTE | 2025-03-14 12:45 | W.ANESCHARGE ---
Anesthesia Charges Start Date/Time Anesthesia Start Date: 03/14/25 Anesthesia Start Time: 12:21 Stop Date/Time Anesthesia Stop Date: 03/14/25 Anesthesia Stop Time: 13:02 Coding CPT Codes CPT Codes: ANES LWR INTST NDSC NOS - [id number] ([id number]) QK - PNP 2-4 CNCRNT ANES PROC, QX - RAND CEMENTER SVC W/ MED DIRECTION, P3 - PATIENT W/SEVERE SYS DISEASE
--- NOTE | 2025-03-14 13:04 | P.ANES_ITS ---
Anesthesia Charges Start Date/Time Anesthesia Start Date: 03/14/25 Anesthesia Start Time: 12:21 Stop Date/Time Anesthesia Stop Date: 03/14/25 Anesthesia Stop Time: 13:02 Coding CPT Codes CPT Codes: ANES LWR INTST NDSC NOS - [id number] ([id number]) P3 - PATIENT W/SEVERE SYS DISEASE, QK - REMOTE SENSING PROGRAM MANAGER 2-4 CNCRNT ANES PROC, QX - CRM MARKETING SPECIALIST SVC W/ MD MED DIRECTION
--- NOTE | 2025-03-14 13:04 | W.ANESCHARGE ---
Anesthesia Charges Start Date/Time Anesthesia Start Date: 03/14/25 Anesthesia Start Time: 12:21 Stop Date/Time Anesthesia Stop Date: 03/14/25 Anesthesia Stop Time: 13:02 Coding CPT Codes CPT Codes: ANES LWR INTST NDSC NOS - [id number] ([id number]) P3 - PATIENT W/SEVERE SYS DISEASE, QK - SLIP COVER MAKER 2-4 CNCRNT ANES PROC, QX - PAROLE HEARING OFFICER SVC W/ MD MED DIRECTION
== END 2025-03-14 10:57 | disposition home or self-care (01) ==
LOC: OP CLINIC 10:57
PROVIDERS: PCP Family Medicine; Visit Provider Surgery
DX: K92.1 Melena (principal); K52.9 Noninfective gastroenteritis and colitis, unspecified
CPT/HCPCS: 00811; 45380; 88305; J2704

== ENCOUNTER 2025-03-21 15:15 | Outpatient (CLI) | payer OTHER, SELFPAY | END 2025-03-21 15:16 | disposition home or self-care (01) | LOC: NFLDREF 03-25 07:19 | PROVIDERS: PCP Family Medicine; Referring Provider Family Medicine; Visit Provider Family Medicine | DX: B35.1 Tinea unguium (principal) | CPT/HCPCS: 80053 ==

== ENCOUNTER 2025-05-13 15:47 | Outpatient (CLI) | payer OTHER, SELFPAY | END 2025-05-13 15:48 | disposition home or self-care (01) | LOC: NFLDREF 05-14 15:01 | PROVIDERS: PCP Family Medicine; Referring Provider Family Medicine; Visit Provider Family Medicine | DX: B00.9 Herpesviral infection, unspecified (principal) | CPT/HCPCS: 80053 ==